=== PATIENT | male | born 1965 | race Two or more races ===

== ENCOUNTER 2025-06-06 09:37 | Inpatient (IN) | payer MEDICAID ==
[~2025-06-06] VITALS: Ht 175.3 cm; Wt 112.0 kg
--- NOTE | 2025-06-06 09:58 | ED.PDOC ---
History of present illness HPI Comments 59 y/o M, with PMHx of DM II and HTN presents to the ED for CC of hyperglycemia. Patient states, he was sent by his PCP for possible hyperglycemia d/t recently losing his medical insurance and being unable to take his insulin. Patient reports, to currently be experiencing symptoms of back pain and bilateral leg swelling as a result. Patient denies excessive thirst, frequent urination, nausea, vomiting, or headache. No other associated symptoms, modifiers, recent injuries or sick contacts present at this time. Time Seen by MD: 09:50 History of present illness: Nurses Notes, Medications, Allergies Allergies: Coded Allergies: NO KNOWN ALLERGIES (Unverified , 01/08/22) Information Source: Patient Mode of Arrival: Ambulatory Timing: Days Duration: Since onset Prehospital treatment: None [place]: None History of: Diabetes, Insulin use Modifying factors: Nothing Associated signs and symptoms: None Past Medical History PAST MEDICAL HISTORY: DM, HTN Surgical History: Denies all surgeries Family History Family History: Reviewed,noncontributory to illness, No family hx of Cancer, No family hx of DM, No family hx of Heart isaac, No family hx of HTN, No family hx ofKidney isaac, No family hx of Liver isaac, No family hx of Lung isaac, No family hx of Stroke Social History Smoker: Non-Smoker Alcohol: Denies ETOH Use Drugs: Denies Drug Use Lives In: Home Constitutional: denies: chills, diaphoresis, fatigue, fever, malaise, sweats, weakness, others EENTM: denies: blurred vision, double vision, ear bleeding, ear discharge, ear drainage, ear pain, ear ringing, eye pain, eye redness, hearing loss, mouth pain, mouth swelling, nasal discharge, nose bleeding, nose congestion, nose pain, photophobia, tearing, throat pain, throat swelling, voice changes, others Respiratory: denies: cough, hemoptysis, orthopnea, SOB at rest, shortness of breath, SOB with excertion, stridor, wheezing, others Cardiovascular: denies: chest pain, dizzy spells, diaphoresis, Dyspnea on exertion, edema, irregular heart beat, left arm pain, lightheadedness, palpitations, PND, syncope, others Gastrointestinal: denies: abdomen distended, abdominal pain, blood streaked bowels, constipated, diarrhea, dysphagia, difficulty swallowing, hematemesis, melena, nausea, poor appetite, poor fluid intake, rectal bleeding, rectal pain, vomiting, others Genitourinary: denies: burning, dysuria, flank pain, frequency, hematuria, incontinence, penile discharge, penile sore, pain, testicle pain, testicle swelling, urgency, others Neurological: denies: dizziness, fainting, headache, left sided numbness, left sided weakness, numbness, paresthesia, pre-existing deficit, right sided numbness, right sided weakness, seizure, speech problems, tingling, tremors, weakness, others Musculoskeletal: reports: back pain, others (bilateral leg swelling); denies: gout, joint pain, joint swelling, muscle pain, muscle stiffness, neck pain Integumetry: denies: bruises, change in color, change in hair/nails, dryness, laceration, lesions, lumps, rash, wounds, others Allergic/Immunocompromised: denies: Difficulty Healing, Frequent Infections, Hives, Itching, others Hematologic/Lymphatic: denies: anemia, blood clots, easy bleeding, easy bruising, swollen glands, others Endocrine: denies: excessive hunger, excessive sweating, excessive thirst, excessive urination, flushing, intolerance to cold, intolerance to heat, unexplained weight gain, unexplained weight loss, others Psychiatric: denies: anxiety, bipolar disorder, depression, hopeless, panic disorder, schizophrenia, sleepless, suicidal, others All Other Systems: Reviewed and Negative Physical Exam General Appearance: No Apparent Distress, Normal HEENT: Normal ENT Inspection, Pharynx Normal Neck: Full Range of Motion, Non-Tender, Normal, Normal Inspection Respiratory: Chest Non-Tender, Lungs Clear, No Accessory Muscle Use, No Respiratory Distress, Normal Breath Sounds Cardiovascular: No Edema, No Murmur, No Gallop, Normal Peripheral Pulses, Regular Rate/Rhythm Breast Exam: Deferred Gastrointestinal: No Organomegaly, Non Tender, No Pulsatile Mass, Normal Bowel Sounds, Soft Genitalia: Deferred Pelvic: Deferred Rectal: Deferred Extremities: Leg edema (1+), No calf tenderness, Normal capillary refill, Normal inspection, Normal range of motion, Non-tender Musculoskeletal : Location: Bilateral Extremity Location: Leg Apperance: Swelling (1+ pitting edema) 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 Was a procedure done?: No Differential Diagnosis (DM) Differential Diagnosis: Dehydration, Electrolyte Abnormality, Hyperglycemia X-Ray, Labs, Meds, VS Vital Signs Date Time Temp Pulse Resp B/P (MAP) Pulse Ox O2 Delivery O2 Flow Rate FiO2 06/06/25 09:45 98.2 67 20 193/104 (133) 97 98.2 66/103 (91) Lab Test 06/06/25 10:07 Range/Units White Blood Count 7.7 4.4-10.8 10^3/uL Red Blood Count 5.21 4.5-5.90 10^6/uL Hemoglobin 15.8 13.5-17.5 g/dL Hematocrit 46.5 41.0-53.0 % Mean Corpuscular Volume 89.3 80.0-100.0 fL Mean Corpuscular Hemoglobin 30.4 28.0-32.0 pg Mean Corpuscular Hemoglobin Concent 34.0 32.0-36.0 g/dL Red Cell Distribution Width 13.9 11.8-14.3 % Platelet Count 168 140-450 10^3/uL Mean Platelet Volume 9.2 6.9-10.8 fL Neutrophils (%) (Auto) 60.7 37.0-80.0 % Lymphocytes (%) (Auto) 29.6 10.0-50.0 % Monocytes (%) (Auto) 6.6 0.0-12.0 % Eosinophils (%) (Auto) 2.5 0.0-7.0 % Basophils (%) (Auto) 0.6 0.0-2.0 % Neutrophils # (Auto) 4.7 1.6-8.6 10 ^3/uL Lymphocytes # (Auto) 2.3 0.4-5.4 10 ^3/uL Monocytes # (Auto) 0.5 0-1.3 10 ^3/uL Eosinophils # (Auto) 0.2 0-0.8 10 ^3/uL Basophils # (Auto) 0 0-0.2 10 ^3/uL Nucleated Red Blood Cells 0.1 % Sodium Level 137 136-145 mmol/L Potassium Level 3.9 3.5-5.1 mmol/L Chloride Level 100 98-107 mmol/L Carbon Dioxide Level 29 20-31 mmol/L Anion Gap 8 5-15 Blood Urea Nitrogen 12 9-23 mg/dL Creatinine 0.99 0.700-1.30 mg/dL Glomerular Filtration Rate Calc 87 >90 mL/min BUN/Creatinine Ratio 12.1 10.0-20.0 Serum Glucose 301 H 74-106 mg/dL Calcium Level 10.0 8.7-10.4 mg/dL Troponin I High Sensitivity 3 L </=54 ng/L B-Type Natriuretic Peptide 24.53 0-100 pg/mL [facility] [id number] [address] Ph: [phone] DIAGNOSTIC IMAGING Diagnostic Imaging Report : [id number] Signed PATIENT: ANGELO JOSHI ACCT: [id number] UNIT: [id number] : 1965 LOC: ER ROOM / BED: / AGE / SEX: 59 / M ADM STATUS: REG ER SERVICE ORDERING PHYSICIAN: SOHAIL BLISS MD PROCEDURE(s): CXRP - CHEST PORTABLE REASON: leg edema ORDER NUMBER(s): [id number], ACCESSION NUMBER(s): [id number] CHEST RADIOGRAPH Indication: leg edema Technique: Single frontal view of the chest was obtained COMPARISON: None FINDINGS: Lines and Tubes: None Lungs: Clear Pleura: No effusion. No pneumothorax. Cardiomediastinal contours: Unremarkable Bones: Unremarkable IMPRESSION: No acute disease. ATED BY: SHAYNE TORRE MD DICTATED DATE/TIME: 06/06/251018 SIGNED BY: SHAYNE TORRE MD SIGNED DATE/TIME: 06/06/251018 CC: Time of 1ST Reevaluation: 10:20 Reevaluation 1ST: Unchanged Patient Education/Counseling: Diagnosis, Treatment Family Education/Counseling: No Family Present SEPSIS Sepsis Screen Physician Orders Chest Portable (06/06/25 09:49) Electrocardigram (06/06/25 09:49) Troponin-I Hs (06/06/25 10:49) Troponin-I Hs (06/06/25 12:49) Electrocardigram (06/06/25 10:49) Electrocardigram (06/06/25 12:49) Hydralazine Injection (Apresoline Inject (06/06/25 11:30) Furosemide Injection (Lasix Injection) (06/06/25 11:30) Vital Signs Date Time Temp Pulse Resp B/P (MAP) Pulse Ox O2 Delivery O2 Flow Rate FiO2 06/06/25 09:45 98.2 67 20 193/104 (133) 97 98.2 66/103 (91) Laboratory Tests Test 06/06/25 10:07 White Blood Count 7.7 10^3/uL (4.4-10.8) Departure 1 Departure Time of Disposition: 11:21 (Patient presented with hypertension and symptoms co mserning for hypertensive emergency. Patient is receiving iv blood pressure medications requiring intensive monitoring. Data: 1. I ordered and reviewed the result of at least 3 labs including a CBC, BMP, and Urinalysis. 2. I independently interpreted the following tests: CT Brain: Which appears benign. EKG which is Normal Sinus RhythmRisk:This patient has a high risk of morbidity d ue to further diagnostic testing or treatment and may suffer from an acute cardiac disorder. Workup reveals hypertensive emergency and patient should be admitted for further workup. and possible expert consultation. ) Impression: Primary Impression: Hypertensive urgency Additional Impression: Lower extremity edema Disposition: ADMITTED INPATIENT Admit to: Med Surg Condition: Serious Critical Care Note Critical Care Time?: Yes Critical care comment: Hypertensive urgency Authorized and Performed by: Sohail Bliss MD Total critical care time: Approximately 44 minutes Due to a high probability of clinically significant, life threatening deterioration, the patient required my highest level of preparedness to intervene emergently and I personally spent this critical care time directly and personally managing the patient. This critical care time included obtaining a history; examining the patient; pulse oximetry; ordering and review of studies; arranging urgent treatment with development of a management plan; evaluation of patient's response to treatment; frequent reassessment; and, discussions with other providers. This critical care time was performed to assess and manage the high probability of imminent, life-threatening deterioration that could result in multi-organ failure. It was exclusive of separately billable procedures and treating other patients and teaching time. Please see my other sections and the rest of the note for further information on patient assessment and treatment. Stability Stability form required: No Heart Score Heart Score: Heart Score Response (Comments) Value History N/A 0 EKG N/A 0 Age N/A 0 Risk Factors N/A 0 Troponin N/A 0 Total 0 I personally scribed for SOHAIL BLISS MD ([email or web address]) on 06/06/25 at 09:58. Electronically submitted by Nohelia Goff ([email or web address]). I personally scribed for SOHAIL BLISS MD ([email or web address]) on 06/06/25 at 10:42. Electronically submitted by Nohelia Goff ([email or web address]). SOHAIL BLISS MD Jun 06, 2025 09:58
[2025-06-06 10:19] LABS: Hematocrit 46.5 % (41.0-53.0); Hemoglobin 15.8 g/dL (13.5-17.5); Mean Corpuscular Hemoglobin 30.4 pg (28.0-32.0); Mean Corpuscular Volume 89.3 fL (80.0-100.0); Nucleated Red Blood Cells % 0.1 %
--- NOTE | 2025-06-06 10:21 | DVH ---
CHEST RADIOGRAPH Indication: leg edema Technique: Single frontal view of the chest was obtained COMPARISON: None FINDINGS: Lines and Tubes: None Lungs: Clear Pleura: No effusion. No pneumothorax. Cardiomediastinal contours: Unremarkable Bones: Unremarkable IMPRESSION: No acute disease.
[2025-06-06 10:27] LABS: Chloride 100 mmol/L (98-107); Potassium 3.9 mmol/L (3.5-5.1); Sodium 137 mmol/L (136-145)
[2025-06-06 10:28] LABS: Anion Gap 8 (5-15); Calcium 10.0 mg/dL (8.7-10.4); Carbon Dioxide 29 mmol/L (20-31)
[2025-06-06 10:33] LABS: BUN/Creatinine Ratio 12.1 (10.0-20.0); Blood Urea Nitrogen 12 mg/dL (9-23)
[2025-06-06 10:34] LABS: Glucose 301 mg/dL (74-106)
[2025-06-06] MEDS ORDERED: METF-372 PO (12:23)
[2025-06-06] MEDS ORDERED: METO-158 PO (12:23)
[2025-06-06] MEDS ORDERED: GLIP5TAB21 PO (12:23)
[2025-06-06] MEDS ORDERED: ONDANSETRON HCL 4 MG/2 ML VIAL IV PRN (12:30)
[2025-06-06] MEDS ORDERED: DEXTROSE (50%) 50ML SYRG IV PRN (12:30)
[2025-06-06] MEDS ORDERED: DOCUSATE SOD 100 MG CAP PO PRN (12:30)
[2025-06-06] MEDS ORDERED: NITROGLYCERIN 0.4 MG SL TAB SL PRN (12:30)
[2025-06-06] MEDS ORDERED: HYDROcodone-ACET 5/325MG TAB PO PRN (12:30)
[2025-06-06] MEDS ORDERED: MORPHINE SULFATE INJ 2 MG/ml SYRG IV PRN (12:30)
[2025-06-06 12:32] LABS: Urine Protein, UAD Negative (Negative)
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
--- NOTE | 2025-06-06 13:00 | DVH ---
INDICATION: pain TECHNIQUE: Frontal and lateral views of the lumbar spine were obtained. COMPARISON: None FINDINGS: Multileve dgernatuve changes most severe at l4-l5 thru l5-s1. There are no fractures or sub luxations. Vertebral body heights and disc spaces are well maintained. Paravertebral soft tissues are unremarkable. IMPRESSION: 1. Of the visualized spine, there is no evidence for fracture or subluxation.
[2025-06-06] MEDS: hydrALAZINE HCL 20 MG/ML VL IV ONE (13:19)
[2025-06-06] MEDS: FUROSEMIDE 20 MG/2 ML VIAL IV ONE (13:26)
[2025-06-06] MEDS: SODIUM CHLOR 0.9% PF (SALINE LOCK) 10ML VIAL/SYR IV SCH (14:00)
[2025-06-06 15:48] VITALS: BP 151/87; PULSE 68; RESP 18; TEMP 98.6; O2SAT 96; O2SAT 98
[2025-06-06 15:50] VITALS: PULSE 63
[2025-06-06 16:48] VITALS: BP 151/87; PULSE 64; RESP 19; O2SAT 96
[2025-06-06] MEDS: ACCU-CHEK COMFORT CURVE STRIP VI SCH (17:00)
[2025-06-06] MEDS: ACETAMINOPHEN 325 MG TAB PO PRN (18:04)
[2025-06-06] MEDS: InsuLIN REG 1unit/0.01ml Soln (100units/ml) SC SCH ×2 (18:07→22:15)
[2025-06-06 20:00] VITALS: PULSE 90
[2025-06-06 21:00] VITALS: BP 153/90; PULSE 75; RESP 16; TEMP 97.7; O2SAT 99
[2025-06-06] MEDS: glipiZIDE 5 MG TAB PO SCH (22:12)
[2025-06-06] MEDS: METOPROLOL TARTRATE 50 MG TAB PO SCH (22:13)
[2025-06-06] MEDS: MELATONIN 5 MG TAB PO ONE (23:16)
[2025-06-07] VITALS (8 sets, daily range): BP systolic 87–162; BP diastolic 75–98; PULSE 60–84; RESP 15–18; TEMP 96.7–98.5; O2SAT 94–97
[2025-06-07 06:54] LABS: Hematocrit 43.4 % (41.0-53.0); Hemoglobin 15.1 g/dL (13.5-17.5); Mean Corpuscular Hemoglobin 30.7 pg (28.0-32.0); Mean Corpuscular Volume 88.2 fL (80.0-100.0); Nucleated Red Blood Cells % 0.0 %
[2025-06-07 07:02] LABS: Alanine Aminotransferase 24 U/L (7-40); Albumin 4.5 g/dL (3.2-4.8); Alkaline Phosphatase 64 U/L (46-116); Anion Gap 9 (5-15); BUN/Creatinine Ratio 11.0 (10.0-20.0); Bilirubin, Total 0.6 mg/dL (0.2-1.0); Blood Urea Nitrogen 10 mg/dL (9-23); Calcium 9.9 mg/dL (8.7-10.4); Carbon Dioxide 26 mmol/L (20-31); Chloride 103 mmol/L (98-107); Glucose 136 mg/dL (74-106); Potassium 3.9 mmol/L (3.5-5.1); Sodium 138 mmol/L (136-145); Total Protein 7.0 g/dL (5.7-8.2)
[2025-06-07] MEDS: hydrALAZINE HCL 20 MG/ML VL IV PRN (12:12)
[2025-06-07] MEDS: LISINOPRIL 20 MG TAB PO ONE (13:16)
[2025-06-07] MEDS: INSULIN LANTUS (GLARGINE) 1 /0.01ml (100units/ml) SC ONE (13:18)
--- NOTE | 2025-06-07 13:31 | DVHPN2 ---
Subjective 59 year old male with a history of hypertension and type 2 diabetes came because of numbness and pain in his feet and swelling in his legs and back pain He also reports elevated blood sugar even though he is taking his metformin and glipizide regularly His hemoglobin A1c here was 11.1 Changes from previous H/P or p: Changes Eyes: No Pain, No Vision change, No Conjunctivae inflammation, No Eyelid inflammation, No Other, No Redness ENT: No Ear pain, No Ear discharge, No Nose pain, No Nose discharge, No Nose congestion, No Mouth pain, No Mouth swelling, No Throat pain, No Throat swelling, No Other Cardiovascular: No Chest Pain, No Palpitations, No Orthopnea, No Paroxysmal Noc. Dyspnea; Edema (bilateral lower extremities); No Lt Headedness, No Other Respiratory: No Cough, No Dry, No Shortness of breath, No SOB with excertion, No Wheezing, No Hemoptysis, No Pleuritic Pain, No Sputum, No Other Gastrointestinal: No Nausea, No Vomiting, No Abdominal Pain, No Diarrhea, No Constipation, No Melena, No Hematochezia, No Other Genitourinary: Dysuria; No Frequency, No Incontinence, No Hematuria, No Retention, No Other Musculoskeletal: No other, No neck pain, No shoulder pain, No arm pain; back pain (left flank, lumbar region); No hand pain; leg pain (bilateral lower extremity pain and tingling); No foot pain Skin: No Rash, No Lesions, No Jaundice, No Bruising, No Other Objective Vitals Vital Signs Date Time Temp Pulse Resp B/P (MAP) Pulse Ox O2 Delivery O2 Flow Rate FiO2 06/07/25 13:16 139/81 06/07/25 10:07 73 06/07/25 08:00 18 95 Room Air* 0 21 06/07/25 05:00 97.2 97.2 Intake/Output Intake and Output 06/07/25 07:00 Intake Total 300 ml Balance 300 ml Intake Oral 300 ml # Voids 8 General Appearance: Alert, Oriented X3, Cooperative Lungs: Clear to auscultation Cardiovascular: Regular rate, Normal S1, Normal S2, No murmurs Abdomen: Normal bowel sounds, Soft, No tenderness Extremities: No edema Medications Current Medications Medications Dose Ordered Sig/Donna Route Start Time Stop Time Status Last Admin Dose Admin Diagnostic Test (Pha) 1 strip ACHS 06/06/25 17:00 06/07/25 11:30 1 STRIP Insulin Human Regular HS SC 06/06/25 22:00 06/06/25 22:15 4 UNITS Insulin Human Regular AC SC 06/06/25 17:00 06/07/25 11:30 6 UNITS Dextrose 50 ml UD PRN IV 06/06/25 12:30 Sodium Chloride 10 ml Q8HR IV 06/06/25 14:00 06/07/25 06:28 10 ML Acetaminophen/ Hydrocodone Bitart 1 tab Q4HP PRN PO 06/06/25 12:30 Ondansetron HCl 4 mg Q4HP PRN IV 06/06/25 12:30 Docusate Sodium 100 mg BIDPRN PRN PO 06/06/25 12:30 Acetaminophen 650 mg Q6HP PRN PO 06/06/25 12:30 06/06/25 18:04 650 MG Nitroglycerin 0.4 mg Q5MINP PRN SL 06/06/25 12:30 Morphine Sulfate 2 mg Q30M PRN IV 06/06/25 12:30 Glipizide 5 mg BID PO 06/06/25 22:00 06/07/25 09:06 5 MG Metoprolol Tartrate 50 mg BID PO 06/06/25 22:00 06/07/25 09:07 50 MG Hydralazine HCl 10 mg Q6HP PRN IV 06/06/25 12:30 06/07/25 12:12 10 MG Insulin Glargine 10 units BID@0700,2200 SC 06/07/25 22:00 Lisinopril 20 mg DAILY PO 06/08/25 10:00 Laboratory Results Laboratory Tests 06/07/25 05:59 Chemistry Test 06/07/25 05:59 Albumin 4.5 g/dL (3.2-4.8) Calcium Level 9.9 mg/dL (8.7-10.4) Total Protein 7.0 g/dL (5.7-8.2) LFT Test 06/07/25 05:59 Alanine Aminotransferase (ALT) 24 U/L (7-40) Alkaline Phosphatase 64 U/L (46-116) Aspartate Amino Transferase (AST) 21 U/L (13-40) Total Bilirubin 0.6 mg/dL (0.2-1.0) Urinalysis Test 06/06/25 09:45 Urine Color Light-yellow (Yellow) Urine Clarity Clear (Clear) Urine pH 6.0 (5.0-9.0) Urine Specific [place] 1.012 (1.001-1.035) Urine Protein Negative (Negative) Urine Ketones Negative (Negative) Urine Blood Negative /uL (Negative) Urine Nitrite Negative (Negative) Urine Bilirubin Negative (Negative) Urine Urobilinogen Normal mg/dL (Negative) Urine Leukocyte Esterase Negative /uL (Negative) Urine RBC 15 /hpf (0 - 3) Urine Microscopic WBC 3 /HPF (0-3) Urine Squamous Epithelial Cells None seen /hpf (<5) Urine Bacteria None seen /hpf (None Seen) Urine Glucose 3+ mg/dL (Normal) H Assessment/Plan Assessment/Plan Uncontrolled type 2 diabetes Hyperglycemia Uncontrolled hypertension Peripheral diabetic neuropathy Plan Start the patient on Lantus Sliding scale regular insulin Resume metformin Continue metoprolol Add lisinopril Advance directives discussed for 18 minutes Full code Plan discussed with: Patient My Orders Orders - JASSON LEWIS MD Procedure Category Date Status Time Insulin Lantus PHA 06/07/25 In Process (Glargine) (Lantus) 22:00 Lisinopril Tablet PHA 06/08/25 In Process (Zestril Tablet) 10:00 Lipid Panel LAB 06/08/25 Verified 04:00 Consistent DIET 06/07/25 Transmitted Carb(Ccho)Diabetes Lunch Date of Service: Jun 07, 2025 Billing Provider: JASSON LEWIS MD Common Visit Codes: [id number] INP/OBS CARE(HIGH) Secondary Visit Codes: [id number] CARE PLAN 30 MINUTES JASSON LEWIS MD Jun 07, 2025 13:31
[2025-06-07] MEDS: INSULIN LANTUS (GLARGINE) 1 /0.01ml (100units/ml) SC SCH (21:52)
[2025-06-08 01:00] VITALS: BP 121/77; PULSE 64; RESP 16; TEMP 98.3; O2SAT 95
[2025-06-08 05:00] VITALS: BP 139/90; PULSE 79; RESP 16; TEMP 97.6; O2SAT 98
[2025-06-08 06:44] LABS: Triglycerides 120 mg/dL (< 150)
[2025-06-08 06:45] LABS: Cholesterol 159 mg/dL (< 200)
[2025-06-08 06:46] LABS: HDL Cholesterol 46 mg/dL (40-59)
[2025-06-08 08:15] VITALS: PULSE 86; RESP 19; O2SAT 99
[2025-06-08 09:00] VITALS: BP 130/82; PULSE 86; RESP 19; TEMP 98.4; O2SAT 99
[2025-06-08] MEDS: LISINOPRIL 20 MG TAB PO SCH (09:49)
[2025-06-08] MEDS ORDERED: BLOO1KIT60 XX (10:04)
[2025-06-08] MEDS ORDERED: INSUINJ37 SC (10:04)
[2025-06-08] MEDS ORDERED: LISI20TA56 PO (10:04)
[2025-06-08] MEDS ORDERED: GABA300T4 PO (10:04)
[2025-06-08] MEDS ORDERED: METF-929 PO (10:04)
[2025-06-08] MEDS ORDERED: METO-158 PO (10:05)
[2025-06-08 11:27] VITALS: BP 130/82; PULSE 86; RESP 19; TEMP 98.4; O2SAT 99
--- NOTE | 2025-06-08 11:50 | DVHDS2 ---
Discharge Summary Date of Admission Jun 06, 2025 at 12:18 Date of Discharge: Jun 08, 2025 Labs/Diagnostic Data: Laboratory Results Test 06/08/25 05:53 06/08/25 05:14 06/07/25 05:59 06/06/25 11:37 POC Glucose 90 mg/dl (70-106) Triglycerides Level 120 mg/dL (< 150) Cholesterol Level 159 mg/dL (< 200) LDL Cholesterol 92 mg/dL (< 100) HDL Cholesterol 46 mg/dL (40-59) White Blood Count 9.0 10^3/uL (4.4-10.8) Red Blood Count 4.92 10^6/uL (4.5-5.90) Hemoglobin 15.1 g/dL (13.5-17.5) Hematocrit 43.4 % (41.0-53.0) Mean Corpuscular Volume 88.2 fL (80.0-100.0) Mean Corpuscular Hemoglobin 30.7 pg (28.0-32.0) Mean Corpuscular Hemoglobin Concent 34.8 g/dL (32.0-36.0) Red Cell Distribution Width 13.8 % (11.8-14.3) Platelet Count 172 10^3/uL (140-450) Mean Platelet Volume 9.1 fL (6.9-10.8) Neutrophils (%) (Auto) 60.7 % (37.0-80.0) Lymphocytes (%) (Auto) 30.4 % (10.0-50.0) Monocytes (%) (Auto) 6.8 % (0.0-12.0) Eosinophils (%) (Auto) 1.6 % (0.0-7.0) Basophils (%) (Auto) 0.5 % (0.0-2.0) Neutrophils # (Auto) 5.5 10 ^3/uL (1.6-8.6) Lymphocytes # (Auto) 2.7 10 ^3/uL (0.4-5.4) Monocytes # (Auto) 0.6 10 ^3/uL (0-1.3) Eosinophils # (Auto) 0.1 10 ^3/uL (0-0.8) Basophils # (Auto) 0 10 ^3/uL (0-0.2) Nucleated Red Blood Cells 0.0 % Sodium Level 138 mmol/L (136-145) Potassium Level 3.9 mmol/L (3.5-5.1) Chloride Level 103 mmol/L (98-107) Carbon Dioxide Level 26 mmol/L (20-31) Anion Gap 9 (5-15) Blood Urea Nitrogen 10 mg/dL (9-23) Creatinine 0.91 mg/dL (0.700-1.30) Glomerular Filtration Rate Calc 96 mL/min (>90) BUN/Creatinine Ratio 11.0 (10.0-20.0) Serum Glucose 136 mg/dL (74-106) Calcium Level 9.9 mg/dL (8.7-10.4) Total Bilirubin 0.6 mg/dL (0.2-1.0) Aspartate Amino Transferase (AST) 21 U/L (13-40) Alanine Aminotransferase (ALT) 24 U/L (7-40) Alkaline Phosphatase 64 U/L (46-116) Total Protein 7.0 g/dL (5.7-8.2) Albumin 4.5 g/dL (3.2-4.8) Troponin I High Sensitivity 3 ng/L (</=54) Test 06/06/25 10:07 06/06/25 09:45 Hemoglobin A1c 11.1 % A1C (<5.7) B-Type Natriuretic Peptide 24.53 pg/mL (0-100) Urine Color Light-yellow (Yellow) Urine Clarity Clear (Clear) Urine pH 6.0 (5.0-9.0) Urine Specific [place] 1.012 (1.001-1.035) Urine Protein Negative (Negative) Urine Ketones Negative (Negative) Urine Blood Negative /uL (Negative) Urine Nitrite Negative (Negative) Urine Bilirubin Negative (Negative) Urine Urobilinogen Normal mg/dL (Negative) Urine Leukocyte Esterase Negative /uL (Negative) Urine RBC 15 /hpf (0 - 3) Urine Microscopic WBC 3 /HPF (0-3) Urine Squamous Epithelial Cells None seen /hpf (<5) Urine Bacteria None seen /hpf (None Seen) Urine Glucose 3+ mg/dL (Normal) Other Laboratory Tests 06/07/25 05:59 Brief Hx & Hospital Course: Final diagnoses: Uncontrolled type 2 diabetes Hyperglycemia Uncontrolled hypertension Peripheral diabetic neuropathy 59-year-old male diabetic with a history of diabetes and hypertension came because of high blood pressure and swelling in his legs with numbness and uncontrolled diabetes He has been taking metformin and glipizide but he says his blood sugar was not controlled He was complaining of numbness in his feet bilaterally Here his blood pressure was high and his blood glucose was high He was started on Lantus He was given lisinopril for the blood pressure and today he is asymptomatic He reports numbness in his bilateral lower extremities He will be discharged home now since his blood pressure and blood glucose is better Discharge medications will include metformin 1000 mg twice a day Discontinue glipizide Lantus 10 units daily He was given a prescription also for a glucometer and supplies Gabapentin 300 mg t.i.d. Metoprolol 50 mg twice a day Follow up with the discharge clinic in 1 week Condition at Discharge: Stable Final Diagnosis/Problems List UNCONTROLLED TYPE 2 DIABETES. HYPERGLYCEMIA. UNCONTROLLED HYPERTENSION. PERIPHERAL DIABETIC NEUROPATHY. Discharge Disposition: Home SNF Discharge Will this Physician continue t: No Discharge Instruct/Medications Diet: Consistent carbohydrate, Cardiac 2g Na,low cholest Diet comment: CONSISTENT CARBOHYDRATE. CARDIAC 2g Na, LOW CHOLESTEROL. Activity: No Restrictions, As Tolerated Follow Up/Referral: PCP 1 week Medications: Metformin 1000 mg bid Metoprolol 50 mg bid Gabapentin 300 mg tid Lisinopril 20 mg qd Lantus pen 10 units qhs Scheduled Gabapentin (Once-Daily) (Gabapentin), 300 MG PO TID Insulin Glargine (Lantus Solostar), 10 UNIT SC HS Lisinopril (Lisinopril), 20 MG PO DAILY Metformin HCl (Metformin Hydrochloride), 1,000 MG PO BID Metformin Hydrochloride (Metformin Hcl), 1 TAB PO BID, (Reported) Metoprolol Tartrate (Metoprolol Tartrate), 50 MG PO BID Discontinued Medications Glipizide (Glipizide), 1 TAB PO BID, (Reported) Durable Medical Equipment Blood Glucose Monitoring Suppl (D-Care Glucometer Kit/Glu W/Device), KIT XX, (DME) Discharge Statement: "Patient was advised to return to the ER or call 911 if any headaches, dizziness, shortness of breath, chest pain, abdominal pain, bleeding, fevers, or worsening of medical condition. Patient was counseled about treatment plan, medications, possible side effects, patientverbalized understanding. All questions were answered to the best of my ability. This discharge took greater then 30 minutes in planning, reviewing documentation, counseling the patient, and discussing with other team members." ASSESSMENT ASSESSMENT Assessment UNCONTROLLED TYPE 2 DIABETES. HYPERGLYCEMIA. UNCONTROLLED HYPERTENSION. PERIPHERAL DIABETIC NEUROPATHY. Date of Service: Jun 08, 2025 Billing Provider: JASSON LEWIS MD Common Visit Codes: [id number] DISCH DAY >30min JASSON LEWIS MD Jun 08, 2025 11:50
[2025-06-08 12:00] VITALS: BP 128/93; PULSE 63; RESP 17; TEMP 97.6; O2SAT 98
--- NOTE | 2025-06-08 18:13 | DVHSR ---
APPROVED REPORT EXAM: Two-dimensional and M-mode echocardiogram with Doppler and color Doppler. Blood Pressure: 138/93 mmHg INDICATION Hypertension RISK FACTORS Height: 5'9", Weight: 246 DIMENSIONS LVDd4.3 (3.8-5.7cm)LA (2D)5.2 (1.9-4.0cm)Aortic Root3.5 (2.0-3.7cm) LVDs2.4 (2.5-4.0cm)LA (MM) (1.9-4.0cm)Aortic Cusp Exc1.9 (1.5-2.0cm) EF (%) 75.0 (55-70%)Rt. Atrium4.9 (1.9-4.0cm)Asc. Aorta3.4 cm IVSd1.0 (0.7-1.1cm)RV (D) (1.8-2.4cm) PWd1.0 (0.7-1.1cm) Mitral Valve MitralMitral Stenosis E wave0.84m/sMV Mean GR.mmHg A wave0.92m/sMV Peak GR.mmHg E/A ratio0.92D MVAcm2 DECEL [id number] 1/2 [place] Aortic Valve Aortic ValveAortic Stenosis V11.01m/Jose Mean GR.4mmHg V21.41m/Jose Peak GR.8mmHg LVOT Diameter2.1 (1.8-2.4cm)Doppler AVA2.48cm2 Pulmonic Valve V21.03m/s Other Information Quality : Technically LimitedRhythm : Technically limited study due to body habitus. Conclusion Sinus rhythm. Biatrial enlargement. Valves are normal. EF of 65% with normal RV function. No Doppler anomalies noted. No pericardial effusion masses or vegetations.
== END 2025-06-08 12:20 | disposition home or self-care (01) | DRG 199 ==
LOC: ER 09:37 → EDUNIT# 09:37 → OVERFLOW 12:18 → TELE-CENTR 15:49
PROVIDERS: ADMIT Internal Medicine Geriatric Medicine; ATTEND Internal Medicine Geriatric Medicine
DX: I16.0 Hypertensive urgency (principal); E11.42 Type 2 diabetes mellitus with diabetic polyneuropathy; E11.65 Type 2 diabetes mellitus with hyperglycemia; Z79.84 Long term (current) use of oral hypoglycemic drugs; Z79.4 Long term (current) use of insulin; Z79.899 Other long term (current) drug therapy; I10 Essential (primary) hypertension
CPT/HCPCS: 36415; 71045; 72100; 80048; 80053; 80061; 81001; 82962; 83036; 83880; 84484; 85025; 93306; 96374; 99291; G0378; J1815

== ENCOUNTER 2025-10-19 11:09 | Outpatient (CLI) | payer MEDICAID ==
[~2025-10-19 11:09] MED LIST: BLOO1KIT60 XX; GABA300T4 PO; INSUINJ37 SC; LISI20TA56 PO; METF-372 PO; METF-929 PO; METO-158 PO
[2025-10-19 12:24] LABS: Microalb/Creat Ratio, Urine 23.0
== END 2025-10-19 17:00 | disposition home or self-care (01) ==
LOC: LAB 11:09
PROVIDERS: ATTEND Internal Medicine
DX: E11.42 Type 2 diabetes mellitus with diabetic polyneuropathy (principal); Z11.3 Encounter for screening for infections with a predominantly sexual mode of transmission; Z79.899 Other long term (current) drug therapy
CPT/HCPCS: 36415; 82043; 82570; 84153; 86703; 86803